=== PATIENT | male | born 1935 | race Caucasian/White ===

== ENCOUNTER 2017-08-18 21:20 | Emergency (ER) | payer OTHER ==
[~2017-08-18] VITALS: Ht 167.6 cm; Wt 83.0 kg
[~2017-08-18 21:20] MED LIST: ASPI-496 PO; CHOL20002 PO; FLUO10TA PO; LISI-167 PO; MELO7.5T31 PO; METF-366 PO; SIMV20TA PO
[2017-08-18 22:23] LABS: BASOPHILS # (AUTO) 0.14 x10^3/uL (0-0.1); BASOPHILS % (AUTO) 1 % (0-1); EOSINOPHILS # (AUTO) 0.31 x10^3/uL (0-0.4); EOSINOPHILS % (AUTO) 3 % (1-7); LYMPHOCYTES # (AUTO) 3.05 x10^3/uL (1-3.4); LYMPHOCYTES % (AUTO) 27 % (22-44); MD NO; MEAN CORPUSCULAR HEMOGLOBIN 30.3 pg (27.5-34.5); MEAN CORPUSCULAR HGB CONC 33.4 g/dL (33.2-36.2); MEAN CORPUSCULAR VOLUME 90.7 fL (81-97); MEAN PLATELET VOLUME 7.4 fL (7.4-10.4); MONOCYTES # (AUTO) 1.23 x10^3/uL (0.2-0.8); MONOCYTES % (AUTO) 11 % (2-9); NEUTROPHILS # (AUTO) 6.59 x10^3/uL (1.8-6.8); NEUTROPHILS % (AUTO) 58 % (42-75); PLATELET COUNT 257 x10^3/uL (130-400); RED BLOOD COUNT 4.89 x10^6/uL (4.38-5.82); RED CELL DISTRIBUTION WIDTH 14.7 % (9.4-14.8)
[2017-08-18 22:35] LABS: ALBUMIN 3.4 g/dL (3.4-5.0); ANION GAP 8 mmol/L (5-15); CALCIUM 8.7 mg/dL (8.5-10.1); CHLORIDE 108 mmol/L (98-107)
[2017-08-18 22:39] LABS: TROPONIN I < 0.015 ng/mL (0.000-0.045)
[2017-08-18 23:47] VITALS: BP 146/83
== END 2017-08-19 00:05 | disposition home or self-care (01) ==
LOC: ED 22:14
DX: R55 Syncope and collapse (principal); E11.9 Type 2 diabetes mellitus without complications; E78.5 Hyperlipidemia, unspecified; G51.0 Bell's palsy; Z86.73 Personal history of transient ischemic attack (TIA), and cerebral infarction without residual deficits; Z88.0 Allergy status to penicillin
CPT/HCPCS: 36415; 80048; 82040; 83735; 84484; 85025; 93005; 99285

== ENCOUNTER 2018-02-19 13:20 | Emergency (ER) | payer OTHER ==
[~2018-02-19 13:20] MED LIST changes: -CHOL20002 PO; +CHOL200052 PO
[2018-02-19 16:15] VITALS: BP 137/64
== END 2018-02-19 16:17 | disposition home or self-care (01) ==
LOC: ED 14:55
DX: S02.40DA Maxillary fracture, left side, initial encounter for closed fracture (principal); S00.03XA Contusion of scalp, initial encounter; S00.83XA Contusion of other part of head, initial encounter; I10 Essential (primary) hypertension; E11.9 Type 2 diabetes mellitus without complications; W19.XXXA Unspecified fall, initial encounter; Y93.89 Activity, other specified; Y92.89 Other specified places as the place of occurrence of the external cause; Y99.8 Other external cause status
CPT/HCPCS: 70450; 70486; 99284

== ENCOUNTER 2018-05-01 19:15 | Inpatient (IN) | payer MEDICARE, OTHER ==
[~2018-05-01] VITALS: Ht 182.9 cm; Wt 84.2 kg
[2018-05-01 20:22] LABS: MEAN CORPUSCULAR HGB CONC 32.6 g/dL (33.2-36.2); MEAN CORPUSCULAR VOLUME 91.9 fL (81-97); MEAN PLATELET VOLUME 7.4 fL (7.4-10.4); PLATELET COUNT 245 x10^3/uL (130-400); RED CELL DISTRIBUTION WIDTH 14.2 % (9.4-14.8)
[2018-05-01 20:36] LABS: ALBUMIN 3.5 g/dL (3.4-5.0); ANION GAP 7 mmol/L (5-15); CALCIUM 8.7 mg/dL (8.5-10.1); CHLORIDE 108 mmol/L (98-107)
[2018-05-01 20:38] LABS: BASOPHILS # (AUTO) 0.06 x10^3/uL (0-0.1); BASOPHILS % (AUTO) 1 % (0-1); EOSINOPHILS # (AUTO) 0.35 x10^3/uL (0-0.4); EOSINOPHILS % (AUTO) 3 % (1-7); LYMPHOCYTES % (AUTO) 23 % (22-44); MD SCAN; MONOCYTES # (AUTO) 1.52 x10^3/uL (0.2-0.8); MONOCYTES % (AUTO) 12 % (2-9); NEUTROPHILS # (AUTO) 8.05 x10^3/uL (1.8-6.8); NEUTROPHILS % (AUTO) 63 % (42-75)
[2018-05-01 20:40] LABS: ALANINE AMINOTRANSFERASE 43 U/L (12-78); ALKALINE PHOSPHATASE 87 U/L (45-117); BILIRUBIN,TOTAL 0.6 mg/dL (0.2-1.0); CREATININE 0.98 mg/dL (0.7-1.3); TOTAL PROTEIN 8.3 g/dL (6.4-8.2)
[2018-05-01] MEDS: INSULIN LISPRO 100 UNITS/ML, PEN SQ-INSULIN SCH (22:00)
[2018-05-01] MEDS ORDERED: BISACODYL 10 MG SUPP PR PRN (22:00)
[2018-05-01] MEDS ORDERED: hydrALAzine 20 MG/ML, 1ML IVPush PRN (22:00)
[2018-05-01] MEDS ORDERED: ONDANSETRON 2MG/ML, 2ML IVPush PRN (22:00)
[2018-05-01] MEDS ORDERED: ONDANSETRON ODT 4 MG PO PRN (22:00)
[2018-05-01] MEDS ORDERED: PROMETHAZINE 25 MG/ML, 1ML IM PRN (22:00)
[2018-05-01] MEDS ORDERED: GABAPENTIN 300 MG CAPSULE PO PRN (22:00)
[2018-05-01] MEDS ORDERED: POLYETHYLENE GLYCOL 17 GM PACKET PO PRN (22:00)
[2018-05-01] MEDS ORDERED: DOCUSATE 100 MG CAPSULE PO PRN (22:00)
[2018-05-01] MEDS ORDERED: LABETALOL 5MG/ML, 20ML IVPush PRN (22:00)
[2018-05-01] MEDS ORDERED: METF500T17 PO (22:04)
[2018-05-01] MEDS ORDERED: LISI-167 PO (22:04)
[2018-05-01] MEDS ORDERED: GABA300C10 PO (22:04)
[2018-05-01] MEDS ORDERED: HYDR25TA11 PO (22:04)
[2018-05-01] MEDS ORDERED: PROP10TA16 PO (22:04)
[2018-05-01 22:18] VITALS: BP 138/78
[2018-05-01 22:48] LABS: HEMOGLOBIN A1C 7.4 % (4.2-6.3)
[2018-05-01 23:00] LABS: FREE T4 (FREE THYROXINE) 1.06 ng/dL (0.76-1.46); THYROID STIMULATING HORMONE 1.5 mIU/L (0.358-3.740)
[2018-05-01] MEDS: ENOXAPARIN 40 MG/0.4 ML SQ SCH (23:25)
[2018-05-01] MEDS: SODIUM CHLORIDE 0.9% 1,000 ML IV SCH (23:25)
[2018-05-01 23:30] VITALS: BP_SYST 131; BP_SYST 137; BP_SYST 156; BP_DIAS 72; BP_DIAS 73; BP_DIAS 74
[2018-05-02] VITALS (7 sets, daily range): BP systolic 103–182; BP diastolic 66–83
[2018-05-02 00:35] LABS: MICROSCOPIC AUTO
[2018-05-02 00:36] LABS: CULTURE INDICATED? NO
[2018-05-02 05:09] LABS: BASOPHILS # (AUTO) 0.04 x10^3/uL (0-0.1); BASOPHILS % (AUTO) 0 % (0-1); EOSINOPHILS # (AUTO) 0.42 x10^3/uL (0-0.4); EOSINOPHILS % (AUTO) 4 % (1-7); LYMPHOCYTES % (AUTO) 23 % (22-44); MD NO; MEAN CORPUSCULAR HEMOGLOBIN 30.5 pg (27.5-34.5); MEAN CORPUSCULAR HGB CONC 32.9 g/dL (33.2-36.2); MEAN CORPUSCULAR VOLUME 92.6 fL (81-97); MEAN PLATELET VOLUME 8.2 fL (7.4-10.4); MONOCYTES # (AUTO) 1.05 x10^3/uL (0.2-0.8); MONOCYTES % (AUTO) 9 % (2-9); NEUTROPHILS # (AUTO) 7.72 x10^3/uL (1.8-6.8); NEUTROPHILS % (AUTO) 65 % (42-75); PLATELET COUNT 221 x10^3/uL (130-400); RED BLOOD COUNT 4.55 x10^6/uL (4.38-5.82); RED CELL DISTRIBUTION WIDTH 14.1 % (9.4-14.8)
[2018-05-02 05:17] LABS: CHLORIDE 109 mmol/L (98-107)
[2018-05-02 05:30] LABS: ALANINE AMINOTRANSFERASE 37 U/L (12-78); ALBUMIN 3.1 g/dL (3.4-5.0); ALKALINE PHOSPHATASE 83 U/L (45-117); ANION GAP 8 mmol/L (5-15); BILIRUBIN,TOTAL 0.8 mg/dL (0.2-1.0); CALCIUM 8.2 mg/dL (8.5-10.1); CHOL/HDL RATIO 3.3; CHOLESTEROL, TOTAL 109 mg/dL (140-239); CREATININE 1.07 mg/dL (0.7-1.3); HDL CHOL % 30 % (26-37); HDL CHOLESTEROL (DIRECT) 33 mg/dL (40-60); LDL CHOLESTEROL,CALCULATED 55 mg/dL (54-169); LDL/HDL RATIO 1.7 (0.5-3.0); TOTAL PROTEIN 7.5 g/dL (6.4-8.2); TRIGLYCERIDES 104 mg/dL (50-200); VLDL CHOLESTEROL 21 mg/dL (0-25)
[2018-05-02] MEDS: ACETAMINOPHEN 325 MG TABLET PO PRN ×2 (06:04→10:19)
[2018-05-02] MEDS: INSULIN LISPRO 100 UNITS/ML, PEN SQ-INSULIN SCH ×4 (07:00→21:00)
[2018-05-02] MEDS: SODIUM CHLORIDE 0.9% 1,000 ML IV SCH (08:31)
[2018-05-02] MEDS: GABAPENTIN 300 MG CAPSULE PO SCH (10:03)
[2018-05-02] MEDS: FLUOXETINE 10 MG CAP PO SCH (10:03)
[2018-05-02] MEDS: CHOLECALCIFEROL 1,000 UNIT TABLET PO SCH (10:04)
[2018-05-02] MEDS: LISINOPRIL 20 MG TABLET PO SCH (10:04)
[2018-05-02] MEDS: metFORMIN 500 MG TABLET PO SCH (17:33)
[2018-05-02] MEDS: SIMVASTATIN 20 MG TABLET PO SCH (22:33)
[2018-05-02] MEDS: ENOXAPARIN 40 MG/0.4 ML SQ SCH (22:33)
[2018-05-03 00:36] VITALS: BP 95/63
[2018-05-03] MEDS ORDERED: SODIUM CHLORIDE 0.9% 500 ML IV SCH (01:30)
[2018-05-03 02:00] VITALS: BP 130/74
[2018-05-03] MEDS ORDERED: SODIUM CHLORIDE 0.9% 500 ML IV ONE (02:00)
[2018-05-03 02:22] LABS: RAPID INFLUENZA A Negative (Negative); RAPID INFLUENZA B Negative (Negative)
[2018-05-03] MEDS: ACETAMINOPHEN 325 MG TABLET PO PRN (02:24)
[2018-05-03 02:35] LABS: BASOPHILS # (AUTO) 0.03 x10^3/uL (0-0.1); BASOPHILS % (AUTO) 0 % (0-1); EOSINOPHILS # (AUTO) 0.12 x10^3/uL (0-0.4); EOSINOPHILS % (AUTO) 1 % (1-7); LYMPHOCYTES # (AUTO) 2.92 x10^3/uL (1-3.4); LYMPHOCYTES % (AUTO) 21 % (22-44); MD NO; MEAN CORPUSCULAR HEMOGLOBIN 30.9 pg (27.5-34.5); MEAN CORPUSCULAR HGB CONC 33.7 g/dL (33.2-36.2); MEAN CORPUSCULAR VOLUME 91.7 fL (81-97); MEAN PLATELET VOLUME 7.4 fL (7.4-10.4); MONOCYTES # (AUTO) 1.31 x10^3/uL (0.2-0.8); MONOCYTES % (AUTO) 10 % (2-9); NEUTROPHILS # (AUTO) 9.41 x10^3/uL (1.8-6.8); NEUTROPHILS % (AUTO) 68 % (42-75); PLATELET COUNT 214 x10^3/uL (130-400); RED BLOOD COUNT 4.74 x10^6/uL (4.38-5.82); RED CELL DISTRIBUTION WIDTH 14.5 % (9.4-14.8)
[2018-05-03 02:48] LABS: ANION GAP 9 mmol/L (5-15); CALCIUM 8.6 mg/dL (8.5-10.1); CHLORIDE 112 mmol/L (98-107); CREATININE 1.11 mg/dL (0.7-1.3)
[2018-05-03 02:52] LABS: TROPONIN I < 0.015 ng/mL (0.000-0.045)
[2018-05-03] MEDS ORDERED: DILTIAZEM 125 MG in SODIUM CHLORIDE 0.9% 100 ML IV SCH (03:00)
[2018-05-03] MEDS: SODIUM CHLORIDE 0.9% 500 ML IV SCH ×4 (03:22→20:11)
[2018-05-03 03:27] VITALS: BP 113/66
[2018-05-03 06:30] VITALS: BP 109/82
[2018-05-03] MEDS: INSULIN LISPRO 100 UNITS/ML, PEN SQ-INSULIN SCH ×4 (07:00→20:19)
[2018-05-03] MEDS ORDERED: AZITHROMYCIN 500 MG TABLET PO SCH (09:00)
[2018-05-03] MEDS: LISINOPRIL 20 MG TABLET PO SCH (09:20)
[2018-05-03] MEDS: LEVOFLOXACIN 750 MG TABLET PO SCH (09:21)
[2018-05-03] MEDS: FLUOXETINE 10 MG CAP PO SCH (09:21)
[2018-05-03] MEDS: metFORMIN 500 MG TABLET PO SCH ×2 (09:21→17:26)
[2018-05-03] MEDS: CHOLECALCIFEROL 1,000 UNIT TABLET PO SCH (09:21)
[2018-05-03] MEDS: GABAPENTIN 300 MG CAPSULE PO SCH (09:21)
[2018-05-03 12:36] VITALS: BP 120/70
[2018-05-03] MEDS: DILTIAZEM 120 MG CAP.ER.24H PO SCH (14:16)
[2018-05-03 18:40] VITALS: BP 116/66
[2018-05-03] MEDS: ENOXAPARIN 40 MG/0.4 ML SQ SCH (20:20)
[2018-05-03] MEDS: SIMVASTATIN 20 MG TABLET PO SCH (20:20)
[2018-05-03] MEDS: METOPROLOL TARTRATE 25 MG TABLET PO SCH (20:20)
[2018-05-04] MEDS: SODIUM CHLORIDE 0.9% 500 ML IV SCH ×2 (00:46→05:33)
[2018-05-04 01:30] VITALS: BP 147/76
[2018-05-04 05:10] LABS: MEAN CORPUSCULAR HEMOGLOBIN 30.4 pg (27.5-34.5); MEAN CORPUSCULAR HGB CONC 33.1 g/dL (33.2-36.2); MEAN CORPUSCULAR VOLUME 91.9 fL (81-97); PLATELET COUNT 217 x10^3/uL (130-400); RED BLOOD COUNT 4.33 x10^6/uL (4.38-5.82); RED CELL DISTRIBUTION WIDTH 14.1 % (9.4-14.8)
[2018-05-04 05:18] LABS: ANION GAP 7 mmol/L (5-15); CALCIUM 8.4 mg/dL (8.5-10.1); CHLORIDE 113 mmol/L (98-107); CREATININE 0.99 mg/dL (0.7-1.3)
[2018-05-04] MEDS: METOPROLOL TARTRATE 25 MG TABLET PO SCH ×2 (05:35→17:22)
[2018-05-04 06:21] LABS: BASOPHILS # (AUTO) 0.17 x10^3/uL (0-0.1); BASOPHILS % (AUTO) 2 % (0-1); EOSINOPHILS # (AUTO) 0.18 x10^3/uL (0-0.4); EOSINOPHILS % (AUTO) 2 % (1-7); LYMPHOCYTES # (AUTO) 3.03 x10^3/uL (1-3.4); LYMPHOCYTES % (AUTO) 26 % (22-44); MD SCAN; MONOCYTES % (AUTO) 13 % (2-9); NEUTROPHILS # (AUTO) 6.92 x10^3/uL (1.8-6.8); NEUTROPHILS % (AUTO) 59 % (42-75)
[2018-05-04 06:45] VITALS: BP 150/71
[2018-05-04] MEDS: INSULIN LISPRO 100 UNITS/ML, PEN SQ-INSULIN SCH ×4 (07:00→20:10)
[2018-05-04] MEDS ORDERED: DILTIAZEM 120 MG CAP.ER.24H PO SCH (09:00)
[2018-05-04] MEDS: CHOLECALCIFEROL 1,000 UNIT TABLET PO SCH (09:34)
[2018-05-04] MEDS: GABAPENTIN 300 MG CAPSULE PO SCH (09:34)
[2018-05-04] MEDS: metFORMIN 500 MG TABLET PO SCH ×2 (09:35→17:22)
[2018-05-04] MEDS: LISINOPRIL 20 MG TABLET PO SCH (09:35)
[2018-05-04] MEDS: FLUOXETINE 10 MG CAP PO SCH (09:35)
[2018-05-04] MEDS: DILTIAZEM 120 MG CAP.ER.24H PO SCH (11:09)
[2018-05-04] MEDS: LEVOFLOXACIN 750 MG TABLET PO SCH (11:09)
[2018-05-04 12:36] VITALS: BP 148/78
[2018-05-04] MEDS ORDERED: ERGOCALCIFEROL 50,000 UNIT CAPSULE PO SCH (13:30)
[2018-05-04 17:24] VITALS: BP 135/74
[2018-05-04 18:25] VITALS: BP 140/79
[2018-05-04] MEDS: SIMVASTATIN 20 MG TABLET PO SCH (20:10)
[2018-05-04] MEDS: ENOXAPARIN 40 MG/0.4 ML SQ SCH (20:10)
[2018-05-04] MEDS: SULFACETAMIDE OPHTH 10%, 5ML OP SCH (21:00)
[2018-05-05 00:29] VITALS: BP 165/94
[2018-05-05 00:41] VITALS: BP 139/79
[2018-05-05] MEDS ORDERED: DILTIAZEM 5 MG/ML, 5ML IVPush ONE (01:00)
[2018-05-05] MEDS ORDERED: DIGOXIN 0.25 MG/ML, 2ML IVPush ONE (01:00)
[2018-05-05 05:10] LABS: BASOPHILS # (AUTO) 0.03 x10^3/uL (0-0.1); BASOPHILS % (AUTO) 0 % (0-1); EOSINOPHILS # (AUTO) 0.15 x10^3/uL (0-0.4); EOSINOPHILS % (AUTO) 1 % (1-7); LYMPHOCYTES # (AUTO) 2.42 x10^3/uL (1-3.4); LYMPHOCYTES % (AUTO) 22 % (22-44); MD NO; MEAN CORPUSCULAR HEMOGLOBIN 30.3 pg (27.5-34.5); MEAN CORPUSCULAR HGB CONC 32.7 g/dL (33.2-36.2); MEAN CORPUSCULAR VOLUME 92.6 fL (81-97); MEAN PLATELET VOLUME 8.1 fL (7.4-10.4); MONOCYTES % (AUTO) 11 % (2-9); NEUTROPHILS # (AUTO) 7.33 x10^3/uL (1.8-6.8); NEUTROPHILS % (AUTO) 66 % (42-75); PLATELET COUNT 262 x10^3/uL (130-400)
[2018-05-05 05:15] LABS: CHLORIDE 107 mmol/L (98-107)
[2018-05-05 05:25] LABS: ALANINE AMINOTRANSFERASE 25 U/L (12-78); ALBUMIN 2.9 g/dL (3.4-5.0); ALKALINE PHOSPHATASE 90 U/L (45-117); ANION GAP 11 mmol/L (5-15); CALCIUM 8.3 mg/dL (8.5-10.1); CREATININE 0.88 mg/dL (0.7-1.3)
[2018-05-05] MEDS: ACETAMINOPHEN 325 MG TABLET PO PRN (05:33)
[2018-05-05] MEDS: SULFACETAMIDE OPHTH 10%, 5ML OP SCH ×6 (05:34→21:00)
[2018-05-05] MEDS: METOPROLOL TARTRATE 25 MG TABLET PO SCH ×2 (05:38→17:38)
[2018-05-05] MEDS: INSULIN LISPRO 100 UNITS/ML, PEN SQ-INSULIN SCH ×4 (07:00→20:56)
[2018-05-05 07:07] VITALS: BP 139/70
[2018-05-05] MEDS: DILTIAZEM CD 180 MG CAP.ER.24H PO SCH (09:59)
[2018-05-05] MEDS: FLUOXETINE 10 MG CAP PO SCH (09:59)
[2018-05-05] MEDS: metFORMIN 500 MG TABLET PO SCH ×2 (10:00→17:38)
[2018-05-05] MEDS: GABAPENTIN 300 MG CAPSULE PO SCH (10:00)
[2018-05-05] MEDS: LISINOPRIL 20 MG TABLET PO SCH (10:00)
[2018-05-05] MEDS: CHOLECALCIFEROL 1,000 UNIT TABLET PO SCH (10:00)
[2018-05-05 11:20] VITALS: BP_SYST 140; BP_SYST 86; BP_DIAS 42; BP_DIAS 68
[2018-05-05 13:36] VITALS: BP 132/78
[2018-05-05] MEDS: ASPIRIN 81 MG TABLET EC PO SCH (14:01)
[2018-05-05] MEDS: LEVOFLOXACIN 750 MG TABLET PO SCH (14:01)
[2018-05-05] MEDS ORDERED: MAGNESIUM SULFATE PMX 2GM/50ML 50 ML IV ONE (19:00)
[2018-05-05 20:47] VITALS: BP 132/71
[2018-05-05] MEDS: ENOXAPARIN 40 MG/0.4 ML SQ SCH (20:56)
[2018-05-05] MEDS: SIMVASTATIN 20 MG TABLET PO SCH (20:56)
[2018-05-06 00:48] VITALS: BP 122/63
[2018-05-06 04:54] LABS: BASOPHILS # (AUTO) 0.04 x10^3/uL (0-0.1); BASOPHILS % (AUTO) 0 % (0-1); EOSINOPHILS # (AUTO) 0.18 x10^3/uL (0-0.4); EOSINOPHILS % (AUTO) 2 % (1-7); LYMPHOCYTES # (AUTO) 2.52 x10^3/uL (1-3.4); LYMPHOCYTES % (AUTO) 24 % (22-44); MD NO; MEAN CORPUSCULAR HGB CONC 33.8 g/dL (33.2-36.2); MEAN CORPUSCULAR VOLUME 91.9 fL (81-97); MEAN PLATELET VOLUME 7.6 fL (7.4-10.4); MONOCYTES # (AUTO) 1.25 x10^3/uL (0.2-0.8); MONOCYTES % (AUTO) 12 % (2-9); NEUTROPHILS # (AUTO) 6.52 x10^3/uL (1.8-6.8); NEUTROPHILS % (AUTO) 62 % (42-75); PLATELET COUNT 278 x10^3/uL (130-400); RED BLOOD COUNT 4.64 x10^6/uL (4.38-5.82)
[2018-05-06 05:04] LABS: CHLORIDE 105 mmol/L (98-107)
[2018-05-06 05:05] LABS: ALBUMIN 2.8 g/dL (3.4-5.0); ANION GAP 8 mmol/L (5-15); CALCIUM 8.4 mg/dL (8.5-10.1)
[2018-05-06 05:08] LABS: ALANINE AMINOTRANSFERASE 25 U/L (12-78); ALKALINE PHOSPHATASE 81 U/L (45-117); BILIRUBIN,TOTAL 0.8 mg/dL (0.2-1.0); CREATININE 1.12 mg/dL (0.7-1.3); TOTAL PROTEIN 7.5 g/dL (6.4-8.2)
[2018-05-06] MEDS: SULFACETAMIDE OPHTH 10%, 5ML OP SCH ×6 (05:54→20:02)
[2018-05-06 06:38] VITALS: BP 137/73
[2018-05-06] MEDS: INSULIN LISPRO 100 UNITS/ML, PEN SQ-INSULIN SCH ×4 (07:00→20:02)
[2018-05-06] MEDS: FLUOXETINE 10 MG CAP PO SCH (09:19)
[2018-05-06] MEDS: metFORMIN 500 MG TABLET PO SCH ×2 (09:19→17:36)
[2018-05-06] MEDS: DILTIAZEM CD 180 MG CAP.ER.24H PO SCH (09:20)
[2018-05-06] MEDS: CHOLECALCIFEROL 1,000 UNIT TABLET PO SCH (09:20)
[2018-05-06] MEDS: METOPROLOL TARTRATE 25 MG TABLET PO SCH ×2 (09:20→17:36)
[2018-05-06] MEDS: GABAPENTIN 300 MG CAPSULE PO SCH (09:20)
[2018-05-06] MEDS: ASPIRIN 81 MG TABLET EC PO SCH (09:20)
[2018-05-06] MEDS: LISINOPRIL 20 MG TABLET PO SCH (09:21)
[2018-05-06] MEDS: LEVOFLOXACIN 750 MG TABLET PO SCH (09:21)
[2018-05-06 12:02] VITALS: BP 112/69
[2018-05-06 19:45] VITALS: BP 121/69
[2018-05-06] MEDS: SIMVASTATIN 20 MG TABLET PO SCH (20:01)
[2018-05-06] MEDS: ENOXAPARIN 40 MG/0.4 ML SQ SCH (20:02)
[2018-05-07 01:27] VITALS: BP 126/73
[2018-05-07 05:29] VITALS: BP 122/68
[2018-05-07] MEDS: ASPIRIN 81 MG TABLET EC PO SCH (05:29)
[2018-05-07] MEDS: SULFACETAMIDE OPHTH 10%, 5ML OP SCH ×4 (05:30→16:31)
[2018-05-07] MEDS: METOPROLOL TARTRATE 25 MG TABLET PO SCH ×2 (05:30→16:38)
[2018-05-07 06:28] VITALS: BP 130/77
[2018-05-07] MEDS: INSULIN LISPRO 100 UNITS/ML, PEN SQ-INSULIN SCH ×3 (07:00→16:00)
[2018-05-07] MEDS: metFORMIN 500 MG TABLET PO SCH ×2 (08:39→16:34)
[2018-05-07] MEDS: GABAPENTIN 300 MG CAPSULE PO SCH (08:39)
[2018-05-07] MEDS: LISINOPRIL 20 MG TABLET PO SCH (08:40)
[2018-05-07] MEDS: DILTIAZEM CD 180 MG CAP.ER.24H PO SCH (08:40)
[2018-05-07] MEDS: FLUOXETINE 10 MG CAP PO SCH (08:41)
[2018-05-07] MEDS: LEVOFLOXACIN 750 MG TABLET PO SCH (08:44)
[2018-05-07] MEDS: TOBRAMYCIN/DEXAMETH OPHTH OINT 3GM OP SCH ×2 (11:37→16:31)
[2018-05-07] MEDS ORDERED: ERGO500017 PO (11:46)
[2018-05-07] MEDS ORDERED: METO25TA35 PO (11:46)
[2018-05-07] MEDS ORDERED: ONDA4TAB13 PO (11:46)
[2018-05-07] MEDS ORDERED: DOCU-131 PO (11:46)
[2018-05-07] MEDS ORDERED: TOBR3.5O2 OP (11:46)
[2018-05-07] MEDS ORDERED: ASPI81TA45 PO (11:46)
[2018-05-07] MEDS ORDERED: LACT1TAB13 PO (11:46)
[2018-05-07] MEDS ORDERED: LEVO750T26 PO ×2 (11:46→15:02)
[2018-05-07] MEDS ORDERED: DILT180C53 PO (11:46)
[2018-05-07 12:11] VITALS: BP 100/61
[2018-05-07 16:39] VITALS: BP 101/58
== END 2018-05-07 18:48 | DRG 871 ==
LOC: ED 22:19 → EDIP 22:21 → 3NE 22:30 → 5SO 05-03 03:00
PROVIDERS: ADMIT Internal Medicine; ATTEND Internal Medicine
DX: A41.9 Sepsis, unspecified organism (principal); J18.9 Pneumonia, unspecified organism; D68.69 Other thrombophilia; I48.0 Paroxysmal atrial fibrillation; E11.9 Type 2 diabetes mellitus without complications; E78.5 Hyperlipidemia, unspecified; F02.80 Dementia in other diseases classified elsewhere, unspecified severity, without behavioral disturbance, psychotic disturbance, mood disturbance, and anxiety; Z96.653 Presence of artificial knee joint, bilateral; R62.7 Adult failure to thrive; G30.9 Alzheimer's disease, unspecified; E55.9 Vitamin D deficiency, unspecified; H10.9 Unspecified conjunctivitis; I10 Essential (primary) hypertension; W18.39XA Other fall on same level, initial encounter; Z79.84 Long term (current) use of oral hypoglycemic drugs; Z79.899 Other long term (current) drug therapy; Z88.0 Allergy status to penicillin; Z91.81 History of falling; Z87.891 Personal history of nicotine dependence; Y93.89 Activity, other specified; Y92.009 Unspecified place in unspecified non-institutional (private) residence as the place of occurrence of the external cause
CPT/HCPCS: 36415; 71045; 71250; 80048; 80053; 80061; 81001; 82306; 82550; 82607; 82962; 83036; 83735; 84100; 84439; 84443; 84484; 85025; 87040; 87400; 87633; 93005; 93306; 99285; G0378; J1650; J0360; J1160; J3475; J7030; J7040; Q0177